=== PATIENT | male | born 1960 | race Hispanic/Latino ===

== ENCOUNTER 2017-05-11 08:38 | Day surgery (SDC) | payer OTHER ==
[2017-05-11 09:03] VITALS: BMI 22.8
[2017-05-11] MEDS ORDERED: Sodium Chloride 0.9% 1,000 ML IV SCH (09:30)
[2017-05-11] MEDS ORDERED: Propofol 10 mg/ml Inj (20 ML) ONE (10:25)
[2017-05-11 12:31] VITALS: BP 120/79; PULSE 95; RESP 16; TEMP 97.8; O2SAT 95
== END 2017-05-11 12:30 | disposition home or self-care (01) ==
LOC: ENDO 08:38
PROVIDERS: ATTEND Internal Medicine Gastroenterology
DX: K29.50 Unspecified chronic gastritis without bleeding (principal); K21.9 Gastro-esophageal reflux disease without esophagitis; E78.5 Hyperlipidemia, unspecified; I10 Essential (primary) hypertension; R73.03 Prediabetes
CPT/HCPCS: 43239; 88305; 88312; 88342; J2001; J2704; J3010; J7040